=== PATIENT | female | born 1995 | race Caucasian/White ===

== ENCOUNTER 2019-07-06 16:38 | Emergency (ER) | payer OTHER ==
[~2019-07-06] VITALS: Ht 162.6 cm; Wt 63.6 kg
[2019-07-06 17:05] VITALS: BP 111/71; TEMP 98.3
[2019-07-06 17:57] VITALS: PULSE 67
== END 2019-07-06 17:58 | disposition home or self-care (01) ==
LOC: COL.ER 16:38
DX: S80.812A Abrasion, left lower leg, initial encounter (principal); W19.XXXA Unspecified fall, initial encounter; Y93.02 Activity, running